=== PATIENT | female | born 1955 | race Caucasian/White ===

== ENCOUNTER 2024-07-16 13:13 | Outpatient (CLI) | payer MEDICARE | END 2024-07-16 13:14 | disposition home or self-care (01) | LOC: CSHMRI 13:13 | PROVIDERS: ATTEND Orthopaedic Surgery | DX: M67.432 Ganglion, left wrist (principal); M24.232 Disorder of ligament, left wrist ==

== ENCOUNTER 2024-09-05 14:19 | Outpatient (CLI) | payer MEDICARE | END 2024-09-05 14:20 | disposition home or self-care (01) | LOC: CSHMRI 14:19 | PROVIDERS: ATTEND Specialist | DX: M47.22 Other spondylosis with radiculopathy, cervical region (principal) | CPT/HCPCS: 72141 ==